=== PATIENT | female | born 1950 | race Caucasian/White ===

== ENCOUNTER 2016-08-26 20:40 | Emergency (ER) | payer MEDICARE, OTHER ==
[~2016-08-26] VITALS: Ht 162.6 cm; Wt 95.5 kg
[~2016-08-26 20:40] MED LIST: CA C1TAB28 PO; CELE200C PO; DOCU-41 PO; GLUC100016 PO; IMI25 PO; LISI-567 PO; OMEP40CA36 PO; PLAN450T PO; RED600CA2 PO; TRAM50TA2 PO
[2016-08-26 20:48] VITALS: BP 156/92; PULSE 70; RESP 16; O2SAT 99
--- NOTE | 2016-08-26 21:29 | DRSVH ---
PROCEDURE: X-RAY LEFT ANKLE, MINIMUM THREE VIEWS ([id number]) INDICATIONS: Pain TECHNIQUE: 3 views of the ankle were acquired. COMPARISON: None. FINDINGS: Bones: No fractures or dislocations. Ankle mortise is normally aligned. No suspicious bony lesions . Soft tissues: Mild malleolar edema is present particularly in the medial aspect. Achilles tendon appe ars normal. IMPRESSION: Mild malleolar edema as above. No visualized acute fracture or dislocation. However, if c linical concern and/or pain persist, short interval imaging followup in 7-10 days is recommended, as occult injury cannot be definitively excluded. Dictated by: Ele Olguin M.D. on 08/26/2016 at 21:26 Approved by: Ele Olguin M.D. on 08/26/2016 at 21:27
--- NOTE | 2016-08-26 22:21 | ED.REPORT ---
HPI-Extremity Problem Lower Date of Service Aug 26, 2016 ED Provider: Jacoby Lopez MD 66 year old female presented to the ER accompanied by her complaining of left ankle pain and swelling sudden in onset while sitting eating dinner just prior to arrival, no known mechanism of injury. Patient denies any trauma to the ankle. Pain has been relieved by elevating the affected ankle. Symptoms were treated with ice and Advil. She had a cortisol shot in her left knee 5 days ago. Currently she takes Lisinopril, omeprazole, and statin daily. Nursing Notes Stated Complaint: ANKLE SWELLING Chief Complaint: Extremity Trauma Nursing Notes Reviewed: Yes Allergies: Coded Allergies: naproxen (Verified Allergy, Severe, Anaphylaxis/severe swelling, 08/26/16) niacin (Unverified Allergy, Unknown, UNKNOWN, 08/26/16) Sulfa (Sulfonamide Antibiotics) (Verified Adverse Reaction, Intermediate, Headache, 08/26/16) iodine (Verified Adverse Reaction, Intermediate, Nausea,Vomiting, 08/26/16) Scheduled Ca Cmb No.1/Vit D3/B-6/FA/B12 (Vitamin D3 1,000 Unit Tablet) 1 Each Tablet 1 EACH PO DAILY Celecoxib (Celebrex) 200 Mg Capsule 200 MG PO DAILY Glucosamine Sulfate 2Kcl (Glucosamine) 1,000 Mg Tablet 1,000 MG PO DAILY Lisinopril (Lisinopril) 20 Mg Tablet 20 MG PO DAILY Omeprazole (Omeprazole) 40 Mg Capsule.dr 40 MG PO DAILY Plant Stanol Marah (Cholest Off) 450 Mg Tablet 450 MG PO DAILY Scheduled PRN Docusate Sodium (Colace) 100 Mg Capsule 100 MG PO BID PRN PRN For Constipation Sumatriptan (Imitrex) 25 Mg Tablet 25 MG PO PRN PRN PRN For Headache Tramadol (Tramadol) 50 Mg Tablet 50 MG PO Q 6HRS PRN PRN PRN For Pain Miscellaneous Medications Red Yeast Rice (Red Yeast Rice) 600 Mg Capsule 1,200 MG PO General Time Seen by MD: 22:21 Chief Complaint Ankle injury left Hx Obtained From: Patient Arrived By: Walk-in Onset Occurred: Just prior to arrival Symptom Duration: Since onset Caused by: Mechanism unknown Context: Occurred at: Home injury Location: : Ankle left Quality: Painful Severity: Current: Moderate Severity: Maximum: Moderate Pertinent Negative: Pt denies other symptoms Exacerbated by: Movement Relieved by: Rest Similar Sx Previous: No Past Medical History Past Medical History Heart murmur HTN Hyperlipidemia Sleep apnea GERD Kidney stones UTI Past Surgical History Excision of squamous cell cancer, left foot Left knee repair Hysterectomy Cholecystectomy Smoking History Unknown if Ever Smoker Social History Other Social History: Good social support, Ambulatory Status Independent Review of Systems Musculoskeletal: Reports: Joint pain (Left Ankle), Denies: Back pain, Extremity pain, Lumbar pain, Neck pain, Thoracic pain Complete sys rev & neg: except as marked. Physical Exam Initial Vital Signs Vital Signs (First) Date Time Temp Pulse Resp B/P Pulse Ox O2 Delivery O2 Flow Rate FiO2 08/26/16 20:48 36.6 70 16 156/92 99 Room Air Initial VS: Reviewed General/Constitutional: Well-developed, Well-nourished Head / Eyes: Atraumatic, Normocephalic Neck: Supple, Non-tender, Full range of motion Upper Extremities: Vascular intact, Neuro intact, No swelling, No tenderness Skin: Warm, Dry, No cyanosis Neurologic: Alert, Oriented, Nonfocal Psychiatric: Mood/affect normal, Behavior normal, Normal thought content Lower Extremity / Pelvis / MS: Atraumatic, Inspection NL, Full range of motion , No swelling, Non-tender, No erythema, No deformity, Neurologic intact, Vascular intact, No edema Ankle / Foot: Neurologic intact, Vascular intact Left Ankle: Positive: Joint effusion present (Lateral malleolus), Swelling present... (Moderate), Tenderness present... Respiratory / Chest: Breath sounds NL, Breath sounds = bilat, No respiratory distress, No rales, No rhonchi, No wheezing Cardiovascular: Heart rate NL, Regular rhythm, Heart sounds NL, Peripheral circulation NL Interpretation & Diagnostics Lab Results Interpretation Result Diagram: 08/26/16231908/26/162319 Test 08/26/16 23:20 08/26/16 23:39 White Blood Count 8.5th/mm3 (3.8-10.1) Red Blood Count 4.95mil/mm3 (3.90-5.20) Hemoglobin 14.3g/dL (12.0-15.6) Hematocrit 43.6% (35.0-46.0) Mean Corpuscular Volume 88.1fL (81-100) Mean Corpuscular Hemoglobin 28.9pg (27.0-35.0) Mean Corpuscular Hemoglobin Concent 32.8% (32.0-37.0) Red Cell Distribution Width 13.7% (12.3-15.4) Platelet Count 210bil/L (150-400) Neutrophils (%) (Auto) 65.0% (40-74) Lymphocytes (%) (Auto) 27.6% (14-46) Monocytes (%) (Auto) 6.4% (4-12) Eosinophils (%) (Auto) 0.8% (0-5) Basophils (%) (Auto) 0.1% (0-3) Prothrombin Time 10.0sec (8.1-12.5) Prothromb Time International Ratio 0.94ratio Sodium Level 143mEq/L (134-144) Potassium Level 4.2mEq/L (3.5-5.2) Chloride Level 103mEq/L (97-108) Carbon Dioxide Level 23mmol/L (18-29) Blood Urea Nitrogen 22mg/dL (8-27) Creatinine 0.85mg/dL (0.57-1.00) Estimat Glomerular Filtration Rate 96mL/min (>59) Glucose Level 97mg/dL (60-99) Uric Acid 6.4mg/dL (2.6-7.2) Calcium Level 9.8mg/dL (8.5-10.1) Total Bilirubin 0.2mg/dL (0.0-1.2) Aspartate Amino Transf (AST/SGOT) 15U/L (0-50) Alanine Aminotransferase (ALT/SGPT) 8U/L (0-32) Alkaline Phosphatase 84U/L (25-165) Total Protein 8.2g/dL (6.4-8.4) Albumin 4.2g/dL (3.4-5.0) Urine Color Dark yellow (YELLOW) Urine Appearance Clear (CLEAR,HAZY) Urine pH 5.5 (5.0-8.0) Urine Specific [place] 1.025 (1.003-1.035) Urine Protein Negativemg/dL (NEG,TRACE) Urine Glucose (UA) Negativemg/dL (NEGATIVE) Urine Ketones Tracemg/dL (NEGATIVE) Urine Occult Blood Negative (NEGATIVE) Urine Nitrite Negative (NEGATIVE) Urine Bilirubin Negative (NEGATIVE) Urine Urobilinogen Normalmg/dL (NORMAL) Urine Leukocyte Esterase Negative (NEGATIVE) Urine RBC 0-2/hpf (0-2) Urine WBC 0-5/hpf (0-5) Urine Epithelial Cells Occasional/hpf (NONE-MOD) Urine Crystals None seen (NONE SEEN) Urine Bacteria Few/hpf (NONE-FEW) Urine Hyaline Casts None/lpf (NONE) Urine Granular Casts None seen (NONE SEEN) Urine Waxy Casts None seen (NONE SEEN) Urine Red Blood Cell Casts None seen (NONE SEEN) Urine White Blood Cell Casts None seen (NONE SEEN) Urine Mucus None seen (None Seen) Urine Trichomonas None seen (NONE SEEN) Urine Yeast None (NONE SEEN) Urinalysis Comment None Urine Culture Reflexed Not indicated X-Ray Interpretation Xray Interpretation: IMPRESSION: Mild malleolar edema as above. No visualized acute fracture or dislocation. However, if clinical concern and/or pain persist, short interval imaging followup in 7-10 days is recommended, as occult injury cannot be definitively excluded. Dictated by: Ele Olguin M.D. on 08/26/2016 at 21:26 Approved by: Ele Olguin M.D. on 08/26/2016 at 21:27 X-Ray Ordered: Ankle left Interpretation / Wet Read by: Interpret - Radiologist Re-Eval/Medical Decision Med Decision/Clinical Course 66-year-old spontaneous onset pain in the lateral left ankle. She was dangling on a high stool at that time and had no other prior injury. She had some concern about gout as I had, given family history of same. However, her uric acid is normal, and the pain is resolved spontaneously with elevation. This renders gout relatively unlikely. She has no fever no erythema and the likelihood of septic joint. Coagulation was normal and not much likelihood of a hemarthrosis, particularly given the temporary nature of her pain and swelling. She is improved without therapy other than elevation and is encouraged to continue that. Pee wrap provided. Dr. Nuñez's cane or crutches. Discharged in stable condition. Re-Evaluation/Progress : Time of Eval: 01:16 Patient Status: Condition improved, Moderate relief, Pain improved Re-Evaluation/Progress Note: Discussed lab and imaging results and plan to discharge. Patient is amenable to the plan. Return precautions given. All other questions addressed. Counseled Regarding: Diagnosis, Lab results, Need for follow-up, When/why to return to ED Discharge & Departure Impression: Primary Impression: Left ankle pain Additional Impression: Dependent edema Disposition: Home Discharge Condition All VS Reviewed: Yes Condition: Stable Patient Instructions: Ankle Sprain (GEN) Additional Instructions: Your x-rays and lab results are reassuring. Rest and elevate whenever possible. Referrals: Ghanshyam Justin MD (PCP) Scribe Attestation Portions of this note were transcribed by Milan Hoyos. I, Dr. Lopez, personally performed the history, physical exam and medical decision-making; I reviewed and confirmed the accuracy of the information in the transcribed note. Signed by: Justyn Negrete. 08/27/2016 - 01:21 copies to: Ghanshyam Justin MD, Christopher W MD Aug 26, 2016 22:21 MILAN HOYOS Aug 26, 2016 22:23
[2016-08-26 23:31] LABS: BASOPHILS % (AUTO) 0.1 % (0-3); EOSINOPHILS % (AUTO) 0.8 % (0-5); MONOCYTES % (AUTO) 6.4 % (4-12); Mean Corpuscular Hemoglobin 28.9 pg (27.0-35.0); Mean Corpuscular Volume 88.1 fL (81-100); Platelet Count 210 bil/L (150-400)
[2016-08-26 23:44] LABS: INR 0.94 ratio
[2016-08-26 23:54] LABS: APPEARANCE,URINE CLEAR (CLEAR,HAZY); COLOR,URINE DARK YELLOW (YELLOW); OCCULT BLOOD,URINE NEGATIVE (NEGATIVE); PH,URINE 5.5 (5.0-8.0); UROBILINOGEN,URINE NORMAL (NORMAL)
[2016-08-27 01:33] VITALS: BP 131/83; PULSE 77; RESP 16; O2SAT 94
== END 2016-08-27 01:29 | disposition home or self-care (01) ==
LOC: SED 20:40
DX: M25.572 Pain in left ankle and joints of left foot (principal); R60.0 Localized edema; I10 Essential (primary) hypertension; E78.5 Hyperlipidemia, unspecified; K21.9 Gastro-esophageal reflux disease without esophagitis; Z88.2 Allergy status to sulfonamides; Z88.8 Allergy status to other drugs, medicaments and biological substances